=== PATIENT | male | born 1980 | race Caucasian/White ===

== ENCOUNTER 2024-02-27 04:54 | Emergency (ER) | payer OTHER ==
[~2024-02-27] VITALS: Ht 185.4 cm; Wt 83.9 kg
[2024-02-27] MEDS ORDERED: ONDANSETRON HCL/PF 4 MG/2 ML VIAL ONE (05:14)
[2024-02-27] MEDS: IV NS 0.9% 1,000 ML BAG IV ONE ×2 (05:18→06:29)
[2024-02-27] MEDS: ONDANSETRON HCL/PF 4 MG/2 ML VIAL IVP ONE (05:18)
[2024-02-27 05:29] LABS: BASOPHILS % (AUTO) 0.1 % (0.0-2.0); EOSINOPHILS % (AUTO) 0.1 % (0.0-6.0); HEMATOCRIT 47 % (39-51); HEMOGLOBIN 16.3 g/dL (13.5-17.5); LYMPHOCYTES # (AUTO) 0.8 K/uL (0.8-4.8); LYMPHOCYTES % (AUTO) 8.2 % (20.0-44.0); MEAN CORPUSCULAR HEMOGLOBIN 30 PG (26.0-33.0); MEAN CORPUSCULAR HGB CONC 35 g/dl (31.0-36.0); MEAN CORPUSCULAR VOLUME 87 fL (80-96); MONOCYTES # (AUTO) 0.7 K/uL (0.1-1.30); MONOCYTES % (AUTO) 7.4 % (2.0-12.0); NEUTROPHILS # (AUTO) 8.5 K/uL (1.8-8.9); NEUTROPHILS % (AUTO) 84.2 % (43.0-81.0); PLATELET COUNT (AUTO) 191 K/uL (150-450); RED BLOOD CELL COUNT(AUTO) 5.37 MIL/uL (4.5-6.0); RED CELL DISTRIBUTION WIDTH 14.5 % (11.5-15.0); WHITE BLOOD COUNT (AUTO) 10.1 K/uL (4.3-11.0)
[2024-02-27 05:36] LABS: APPEARANCE,URINE CLEAR (CLEAR); BILIRUBIN,URINE 1+ (NEGATIVE); BLOOD, URINE NEGATIVE Ery/uL (NEGATIVE); COLOR,URINE YELLOW (YELLOW); KETONES,URINE 1+ mg/dL (NEGATIVE); LEUKOCYTE ESTERASE ,URINE NEGATIVE (NEGATIVE); NITRITE, URINE NEGATIVE (NEGATIVE); PH,URINE 7.5 (5.0-8.0); PROTEIN,URINE 3+ mg/dl (NEGATIVE); UGLUCOSE NEGATIVE (NEGATIVE)
[2024-02-27 05:43] LABS: ALBUMIN 4.4 g/dL (3.4-5.0); BILIRUBIN,DIRECT 0.4 mg/dL (0.0-0.2); BILIRUBIN,TOTAL 1.1 mg/dL (0.2-1.0); CALCIUM, SERUM 9.4 mg/dL (8.5-10.1); POTASSIUM 2.8 mmol/L (3.5-5.1); TOTAL PROTEIN, SERUM 8.7 g/dL (6.4-8.2)
[2024-02-27 05:46] LABS: INR 1.04 (0.91-1.10); PARTIAL THROMBOPLASTIN TIME 26.4 SEC (24.3-34.3)
[2024-02-27 05:55] LABS: ADD URINE CULTURE NO; BACTERIA,URINE Rare /HPF (None Seen); RBC,URINE NONE SEEN /HPF (0-2); SQUAMOUS EPITHELIAL CELL,UR Rare /HPF (None Seen); WBC,URINE 0-2 /HPF (0-3)
[2024-02-27 05:56] LABS: MUCUS,URINE Few /LPF (None Seen)
[2024-02-27] MEDS ORDERED: POTASSIUM CL. PREMIX PERIPHER. 150 ML ONE (06:21)
[2024-02-27] MEDS ORDERED: Magnesium 1GM/D5W 100ML PREMIX 100 ML IV ONE (06:21)
[2024-02-27] MEDS ORDERED: LORAZEPAM INJ 2 MG/ML VIAL ONE (06:22)
[2024-02-27] MEDS: LORAZEPAM INJ 2 MG/ML VIAL IV ONE (06:29)
[2024-02-27] MEDS: POTASSIUM CL. PREMIX PERIPHER. 50 ML IV SCH (06:37)
[2024-02-27] MEDS: Magnesium 1GM/D5W 100ML PREMIX 100 ML IV SCH (06:49)
[2024-02-27] MEDS ORDERED: CIPR-262 PO (08:25)
[2024-02-27] MEDS ORDERED: ONDA4TAB11 PO (08:25)
[2024-02-27] MEDS ORDERED: METR500T PO (08:25)
[2024-02-27 09:49] VITALS: BP 142/92; TEMP 98.1; O2SAT 98
== END 2024-02-27 09:56 | disposition home or self-care (01) ==
LOC: ER 04:58
DX: K57.32 Diverticulitis of large intestine without perforation or abscess without bleeding (principal); E86.0 Dehydration; E87.6 Hypokalemia; R11.2 Nausea with vomiting, unspecified; R07.89 Other chest pain; R00.0 Tachycardia, unspecified; R25.1 Tremor, unspecified
CPT/HCPCS: 99285; 74176; 96365; 96375; 71045; 96361; 96368; 93005; 85025; 80048; 83690; 80076; 81001; 36415; 85730; J2060; J2405; J7030; J3480; J3475